=== PATIENT | female | born 1965 | race Caucasian/White ===

== ENCOUNTER 2017-04-02 16:07 | Outpatient (CLI) | payer OTHER ==
--- NOTE | 2017-04-03 08:40 | Mammography Report ---
BILATERAL DIGITAL SCREENING MAMMOGRAM with CAD: 04/02/17 CLINICAL: Routine screening. COMPARISON:None available. However, a prior mammogram was apparently done at [facility]. FINDINGS: The breasts are heterogeneously dense, which may obscure small masses. A right asymmetry on the MLO view requires comparison with a prior mammogram.No architectural distortion or suspicious calcifications.The left breast is negative. IMPRESSION: Right asymmetry requiring further evaluation. BI-RADS CATEGORY: 0 -- Additional Evaluation Required RECOMMENDATION: Comparison with a previous mammogram. We will attempt to obtain a prior mammogram. If we do not obtain a prior mammogram for comparison within 30 days, a revised report will be issued recommending a recall for additional imaging. Please be advised that the patient should not schedule an appointment for return until adequate time (at least 2 weeks) has passed for us to obtain the prior mammogram. ACR BI-RADS MAMMOGRAPHIC CODES: 0 = Needs additional imaging evaluation; 1 = Negative; 2 = Benign; 3 = Probably benign; 4 = Suspicious; 5 = Malignant; 6 = Known biopsy-proven malignancy COMMENT: 1. Dense breast tissue, i.e., adenosis, fibrocystic changes, etc., may obscure an underlying neoplasm. 2. Approximately 10% of cancers are not detected with mammography. 3. A negative mammography report should not delay biopsy if a clinically suspicious mass is present. COMMENT: Patient follow-up letters are generated via our [employer] application.
== END 2017-04-02 16:08 | disposition home or self-care (01) ==
LOC: SPVWC 16:07
PROVIDERS: ATTEND Family Medicine
DX: Z12.31 Encounter for screening mammogram for malignant neoplasm of breast (principal)
CPT/HCPCS: 77067; G0202